=== PATIENT | female | born 1990 | race Two or more races ===

== ENCOUNTER 2017-01-19 14:13 | Emergency (ER) | payer BC ==
[~2017-01-19] VITALS: Ht 167.6 cm; Wt 45.4 kg
[2017-01-19 14:45] VITALS: BP 115/71
[2017-01-19] MEDS: Methocarbamol 750mg tab ORAL ONE ×2 (15:00→15:46)
[2017-01-19] MEDS ORDERED: ROBAXIN-750750 MG PO (16:02)
[2017-01-19] MEDS ORDERED: IBUPROFEN600 MG ORAL (16:02)
[2017-01-19 16:15] VITALS: BP 116/77
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
== END 2017-01-19 18:10 | disposition home or self-care (01) ==
LOC: EMR 14:45
DX: S16.1XXA Strain of muscle, fascia and tendon at neck level, initial encounter (principal); V43.52XA Car driver injured in collision with other type car in traffic accident, initial encounter; Y92.410 Unspecified street and highway as the place of occurrence of the external cause
CPT/HCPCS: 99284